=== PATIENT | male | born 1970 | race Caucasian/White ===

== ENCOUNTER 2017-11-03 21:34 | Emergency (ER) | payer OTHER ==
[~2017-11-03 21:34] MED LIST: ADDE5TAB PO; ADDE5XR PO; OMPR20CCR PO; ZOFR4TAB3 SL
[2017-11-03 21:37] VITALS: BP 155/101; PULSE 89; RESP 16; TEMP 99.1; O2SAT 97
[2017-11-03] MEDS ORDERED: MAGICADU2 SWISH-SWAL (23:57)
[2017-11-03] MEDS ORDERED: AMOX500T PO (23:57)
[2017-11-03] MEDS ORDERED: PRED-503 PO (23:57)
[2017-11-04] MEDS ORDERED: predniSONE 20 MG TAB PO ONE
[2017-11-04] MEDS ORDERED: LIDOCAINE VISCOUS 2% SOLN 15 ML UDC SWISH-SWAL ONE
[2017-11-04] MEDS ORDERED: ALUMINUM/MAGNESIUM/SIMETH 30 ML CUP PO ONE
--- NOTE | 2017-11-04 00:10 | PD ---
HPI Chief Complaint: Cold / Flu Symptoms Time Seen by Provider: 23:51 Travel History International Travel<30 days: No Contact w/Intl Traveler<30days: No Traveled to known affect area: No History of Present Illness HPI 47-year-old white male presents to emergency Department with complaints of sore throat. He states his symptoms started when he was visiting [place]. He states that his symptoms have gradually worsened. He has had slight subjective fever. He has difficulty swallowing. He has had a hoarse voice area and mild ear pain. Slight congestion and cough. Patient now states that he's also developed some myalgias and arthralgias. Denies any shortness of breath or wheezing. No nausea vomiting. No abdominal pain or diarrhea. Symptoms are moderate. Worse with swallowing. No alleviating factors. PFSH Past Medical History ADD: Yes Diminished Hearing: No GERD: Yes Tetanus Vaccination: < 5 Years Past Surgical History Other Surgery: Yes (colonoscopy) Social History Alcohol Use: Yes (occ) Tobacco Use: No Substance Use: No Allergies-Medications (Allergen,Severity, Reaction): Coded Allergies: No Known Allergies (Unverified Adverse Reaction, Unknown, 11/03/17) Reported Meds & Prescriptions Reported Meds & Active Scripts Active Amoxicillin 500 Mg Tab 500 Mg PO TID 10 Days Deltasone (Prednisone) 20 Mg Tab 20 Mg PO BID 5 Days Magic Mouthwash Adult Liq (Multi-Ingredient Mouthwash/Gargle) 120 Ml Susp 5 Ml SWISH-SWAL ACHS Each 5mL contains: Nystatin 200,000units, Diphenhydramine 4.25mg, Viscous Lidocaine 10mg, Matson syrup 0.8 mL Review of Systems Except as stated in HPI: all other systems reviewed are Neg Physical Exam Narrative GENERAL: Well-developed, well-nourished in no acute distress. Nontoxic appearing. HEAD: Normocephalic, atraumatic. EYES: Pupils equal round and reactive. Extraocular motions intact. No scleral icterus. No injection or drainage. ENT: TMs clear without erythema. The external auditory canals clear. Nose: clear . Posterior pharynx is mildly erythematous and moist. No tonsillar edema or exudate. Uvula midline. Airway patent. Posterior cervical adenopathy. NECK: Trachea midline.Supple, nontender, moves head freely. No central bony tenderness or spasm. CARDIOVASCULAR: Regular rate and rhythm without murmurs, gallops, or rubs. RESPIRATORY: Clear to auscultation. Breath sounds equal bilaterally. No wheezes , rales, or rhonchi. GASTROINTESTINAL: Abdomen soft, non-tender, nondistended. No hepato-splenomegaly , or palpable masses. No guarding. EXTREMITIES: No clubbing, cyanosis, or edema. No joint tenderness, effusion, or edema noted. BACK: Nontender without deformity or crepitance. No flank tenderness. Data Data Last Documented VS Vital Signs Date Time Temp Pulse Resp B/P (MAP) Pulse Ox O2 Delivery O2 Flow Rate FiO2 11/03/17 21:37 99.1 89 16 155/101 (119) 97 Orders Orders Group A Rapid Strep Screen (11/03/17 21:48) Strep Culture (Group A) (11/03/17 22:00) Prednisone (Deltasone) (11/04/17 00:00) Al-Mag Hy-Si 40-40-4 Mg/Ml Liq (Mag-Al P (11/04/17 00:00) Lidocaine 2% Viscous (Xylocaine 2% Visco (11/04/17 00:00) Ed Discharge Order (11/04/17 00:05) MDM Medical Decision Making Medical Screen Exam Complete: Yes Emergency Medical Condition: Yes Medical Record Reviewed: Yes Differential Diagnosis MDM: High Differential diagnoses: Strep throat, viral pharyngitis, mono, peritonsillar abscess, bronchitis, influenza Narrative Course Patient's rapid strep is negative. I agreed to give him a prescription for amoxicillin and perform watch and wait. He is given prednisone 40 mg by mouth and Maalox and lidocaine now. This is viral pharyngitis, URI Diagnosis Primary Impression: Viral pharyngitis Additional Impression: URI Patient Instructions: General Instructions Departure Forms: Tests/Procedures, Work Release Special Instructions: No work 2 days. Additional Instructions: Rest. Force fluids. Saltwater gargles. Magic mouthwash and prednisone. Tylenol and Advil. Chloraseptic [place] Cepastat lozenge. If you develop worsening fever or your symptoms worsen fill your prescription for the Amoxicillin. Follow-up with a primary care doctor in one week. Return to the ER if any problems. Med/Other Pt SpecificInfo: Prescription(s) given Scripts Amoxicillin (Amoxicillin) 500 Mg Tab 500 MG PO TID for Infection for 10 Days, TAB 0 Refills Prov: Kaykay Gaspar 11/03/17 Prednisone (Deltasone) 20 Mg Tab 20 MG PO BID for 5 Days, #10 TAB 0 Refills Prov: Kaykay Gaspar 11/03/17 Ojonizlz-Dkqmswaxjeniaff-Gkjuchrjh Liq (Magic Mouthwash Adult Liq) 120 Ml Susp 5 ML SWISH-SWAL ACHS for Mouth sores, #120 ML 0 Refills Each 5mL contains: Nystatin 200,000units, Diphenhydramine 4.25mg, Viscous Lidocaine 10mg, Matson syrup 0.8 mL Prov: Kaykay Gaspar 11/03/17 Disposition: 01 DISCHARGE HOME Condition: Stable Ralph Diego Nov 04, 2017 00:10
== END 2017-11-04 00:33 | disposition home or self-care (01) ==
LOC: NEPK 21:34
DX: J02.8 Acute pharyngitis due to other specified organisms (principal); B97.89 Other viral agents as the cause of diseases classified elsewhere; K21.9 Gastro-esophageal reflux disease without esophagitis
CPT/HCPCS: 87081; 87880; 99284; J7512